=== PATIENT | female | born 1955 | race African-American/Black ===

== ENCOUNTER 2016-12-30 10:18 | Day surgery (SDC) | payer MEDICARE, OTHER ==
--- NOTE | ~2016-12-30 | EGD ---
EGD REPORT [facility] [address] [address] NAME: KELSEY NAVARRO : 55 STATUS : REG [facility]#: [id number] AGE: 61 ADM/REG DATE : 12/30/16 MR#: [id number] REPORT SERV DATE: 12/30/16 DICTATED BY: DATE: REPORT STATUS : Draft TRANSCRIBED BY: [employer] DATE: 12/30/16 [facility] Patient Name: Kelsey Navarro Date of : 1955 Attending MD: MARGIE RODRIGUEZ MD Procedure Date No Time: 12/30/2016 Procedure: Upper GI endoscopy Indications: Dyspepsia Referring MD: Missy Nelson Medicines: Monitored Anesthesia Care Complications: No immediate complications. Procedure: Pre-Anesthesia Assessment: - ASA Grade Assessment: II - A patient with mild systemic disease. After obtaining informed consent, the endoscope was passed under direct vision. Throughout the procedure, the patient's blood pressure, pulse, and oxygen saturations were monitored continuously. The GIF H190 [id number] was introduced through the mouth, and advanced to the second part of duodenum. The upper GI endoscopy was accomplished without difficulty. The patient tolerated the procedure well. Findings: The examined esophagus was normal. The Z-line was regular and was found 38 cm from the incisors. There is no endoscopic evidence of Hael's esophagus, esophagitis, hiatus hernia, ulcerations or varices in the entire esophagus. The entire examined J-shaped stomach was normal. Biopsies were taken with a cold forceps for histology. There is no endoscopic evidence of erythema, mucosal abnormalities, ulceration or varices in the entire examined stomach. The examined duodenum was normal. Biopsies were taken with a cold forceps for histology. There is no endoscopic evidence of inflammation, mucosal abnormalities or ulceration in the entire examined duodenum. The cardia and gastric fundus were normal on retroflexion. Impression: - Normal esophagus. - Z-line regular, 38 cm from the incisors. - Normal stomach. Biopsied. - Normal examined duodenum. Biopsied. Recommendation: - Patient has a contact number available for emergencies. The signs and symptoms of potential delayed EGD REPORT [address] [address] NAME: KELSEY NAVARRO : 55 STATUS : REG [facility] [place] PAT#: [id number] AGE: 61 ADM/REG DATE : 12/30/16 MR#: [id number] REPORT SERV DATE: 12/30/16 DICTATED BY: DATE: REPORT STATUS : Draft TRANSCRIBED BY: [employer] DATE: 12/30/16 complications were discussed with the patient. Return to normal activities tomorrow. Written discharge instructions were provided to the patient. - Return to previous diet. - Discharge patient to home. - Continue present medications. - Await pathology results. Procedure Code(s): --- Professional --- 62251, Esophagogastroduodenoscopy, flexible, transoral; with biopsy, single or multiple Diagnosis Code(s): --- Professional --- K30, Functional dyspepsia CPT copyright 2013 [employer]. All rights reserved. The codes documented in this report are preliminary and upon orthopedic coder review may be revised to meet current compliance requirements. MARIGE RODRIGUEZ MD 12/30/2016 12:57 PM This report has been signed electronically. Number of Addenda: 0 Note Initiated On: 12/30/2016 12:46 PM Scope Withdrawal Time 0 hours 0 minutes 0 seconds [id number] [id number]
--- NOTE | ~2016-12-30 | EGD ---
EGD REPORT [facility] [address] [address] NAME: KELSEY NAVRARO : 55 STATUS : REG [facility] [place]#: [id number] AGE: 61 ADM/REG DATE : 12/30/16 MR#: [id number] REPORT SERV DATE: 12/30/16 DICTATED BY: DATE: REPORT STATUS : Draft TRANSCRIBED BY: [employer] DATE: 12/30/16 [facility] Patient Name: Kelsey Navarro Date of : 1955 Attending MD: MARGIE RODRIGUEZ MD Procedure Date No Time: 12/30/2016 Procedure: Colonoscopy Indications: Screening for colorectal malignant neoplasm Referring MD: Missy Nelson Medicines: Monitored Anesthesia Care Complications: No immediate complications. Procedure: Pre-Anesthesia Assessment: - ASA Grade Assessment: II - A patient with mild systemic disease. After I obtained informed consent, the scope was passed under direct vision. Throughout the procedure, the patient's blood pressure, pulse, and oxygen saturations were monitored continuously. The PCF [id number] was introduced through the anus and advanced to the cecum, identified by appendiceal orifice and ileocecal valve. The colonoscopy was performed without difficulty. The patient tolerated the procedure well. The quality of the bowel preparation was excellent. Findings: The perianal exam was abnormal. Findings include internal hemorrhoids (Grade I). Many small-mouthed diverticula were found in the sigmoid colon and at the splenic flexure. A flat polyp was found in the ascending colon. The polyp was diminutive in size. The polyp was removed with a cold biopsy forceps. Resection and retrieval were complete. No other significant abnormalities were identified in a careful examination of the remainder of the colon. There is no endoscopic evidence of inflammation, mass, ulcerations or angioectasia in the entire colon. No additional abnormalities were found on retroflexion. Impression: - Internal hemorrhoids (Grade I) found on perianal exam. - Diverticulosis in the sigmoid colon and at the splenic flexure. - One diminutive polyp in the ascending colon. Resected and retrieved. Recommendation: - Patient has a contact number available for EGD REPORT [address] [address] NAME: KELSEY NAVARRO : 55 STATUS : REG [facility] [place] PAT#: [id number] AGE: 61 ADM/REG DATE : 12/30/16 MR#: [id number] REPORT SERV DATE: 12/30/16 DICTATED BY: DATE: REPORT STATUS : Draft TRANSCRIBED BY: [employer] DATE: 12/30/16 emergencies. The signs and symptoms of potential delayed complications were discussed with the patient. Return to normal activities tomorrow. Written discharge instructions were provided to the patient. - High fiber diet. - Discharge patient to home. - Continue present medications. - Await pathology results. - Repeat colonoscopy in 5-10 years for surveillance based on pathology results. - If the pathology report reveals adenomatous tissue, then repeat the colonoscopy for surveillance based on pathology results in 5 years. - If the pathology report reveals no adenomatous tissue, then repeat the colonoscopy for screening purposes in 10 years. - Use Preparation H on hemorrhoids next few nights. Procedure Code(s): --- Professional --- 88339, Colonoscopy, flexible, proximal to splenic flexure; with biopsy, single or multiple Diagnosis Code(s): --- Professional --- K64.0, First degree hemorrhoids K57.30, Diverticulosis of large intestine without perforation or abscess without bleeding D12.2, Benign neoplasm of ascending colon Z12.11, Encounter for screening for malignant neoplasm of colon CPT copyright 2013 [employer]. All rights reserved. The codes documented in this report are preliminary and upon estate planning director review may be revised to meet current compliance requirements. MARGIE RODRIGUEZ MD 12/30/2016 1:14 PM This report has been signed electronically. Number of Addenda: 0 Note Initiated On: 12/30/2016 12:44 PM Scope Withdrawal Time 0 hours 10 minutes 31 seconds [id number] [id number]
[~2016-12-30 10:18] MED LIST: HYDROCHLOROT12.5 MG PO; LISINOPRIL40 MG PO; LYRICA100 MG PO; NASONEX NAS; NORCO1 TAB PO; NORV5 PO; PROTONIX PO; SYMBICORT 160/41 INH INH
== END 2016-12-30 23:59 | disposition home or self-care (01) ==
LOC: DMU 10:18
PROVIDERS: Internal Medicine Gastroenterology
PROC: 0DB68ZX Excision of Stomach, Via Natural or Artificial Opening Endoscopic, Diagnostic (ICD-10-PCS; 2016-12-30)
PROC: 0DBK8ZX Excision of Ascending Colon, Via Natural or Artificial Opening Endoscopic, Diagnostic (ICD-10-PCS; principal; 2016-12-30 12:00)
PROC: 0DB98ZX Excision of Duodenum, Via Natural or Artificial Opening Endoscopic, Diagnostic (ICD-10-PCS; 2016-12-30 12:00)
DX: Z12.11 Encounter for screening for malignant neoplasm of colon (principal); K64.0 First degree hemorrhoids; K57.30 Diverticulosis of large intestine without perforation or abscess without bleeding; K29.50 Unspecified chronic gastritis without bleeding; K63.89 Other specified diseases of intestine; I10 Essential (primary) hypertension; J44.9 Chronic obstructive pulmonary disease, unspecified
CPT/HCPCS: 88305; J2405